=== PATIENT | male | born 1975 | race American Indian/Alaskan Native ===

== ENCOUNTER 2020-02-16 12:38 | Emergency (ER) | payer SELFPAY ==
--- NOTE | 2020-02-16 15:23 | Emergency Department Report ---
ED Headache HPI - General Chief Complaint: Headache Stated Complaint: HEAD PAIN, SWEATING Time Seen by Provider: 02/16/20 15:05 Source: patient Exam Limitations: no limitations - History of Present Illness Initial Comments: 44-year-old male presents to the ER today complaint of a headache. Patient states that for the past 2 days he has been having a headache to the frontal aspect, and crown of his head. He describes as a sharp intermittent headache. He denies any worsening factors. And he denies any relieving factors. He states that he did not try anything for the headache. He reports associated low back pain that radiates down into the posterior aspect of his legs down to his knee. This started last night. He denies any associated nausea, vomiting, abdominal pain, chest pain, vision changes, speech changes or any other associated symptoms. He denies any head injury. He denies any back or leg injury or strenuous activity. He denies hx DAVIES or similar symptoms in past. Pt BP noted to be elevated at triage. Pt admits that several yrs ago he was told that his blood pressure was elevated but at the time he was exercising and he was told to continue. He was not started on any medication. He states his BP was good when he was exercising but he has since stopped. Timing/Duration: other (2 days ago ) Quality: moderate Head Injury Location: frontal, parietal Recent Head Trauma: no recent headache/trauma Allergies/Adverse Reactions: Allergies No Known Allergies Allergy (Verified 02/16/20 12:42) Home Medications: Ambulatory Orders Ketorolac [Toradol] 10 mg PO Q6H PRN #20 tablet 02/16/20 Methocarbamol [Robaxin] 500 mg PO TID PRN #30 tablet 02/16/20 ED Review of Systems ROS: Stated complaint: HEAD PAIN, SWEATING Other details as noted in HPI Comment: All other systems reviewed and negative Constitutional: denies: chills, fever Eyes: denies: eye pain, eye discharge, vision change ENT: denies: ear pain, throat pain Respiratory: denies: cough, shortness of breath, wheezing Cardiovascular: denies: chest pain, palpitations Endocrine: no symptoms reported Gastrointestinal: denies: abdominal pain, nausea, diarrhea Genitourinary: as per HPI Musculoskeletal: back pain, arthralgia, myalgia Skin: denies: rash, lesions Neurological: headache Psychiatric: denies: anxiety, depression Hematological/Lymphatic: denies: easy bleeding, easy bruising ED Past Medical Hx - Past Medical History Previous Medical History?: No - Surgical History Past Surgical History?: No - Social History Smoking Status: Never Smoker Substance Use Type: None - Medications Home Medications: Home Medications Medication Instructions Recorded Confirmed Last Taken Type Ketorolac [Toradol] 10 mg PO Q6H PRN #20 tablet 02/16/20 Unknown Rx Methocarbamol [Robaxin] 500 mg PO TID PRN #30 tablet 02/16/20 Unknown Rx ED Physical Exam - General Limitations: No Limitations General appearance: alert, in no apparent distress - Head Head exam: Present: atraumatic, normocephalic, normal inspection - Eye Eye exam: Present: normal appearance, PERRL, EOMI Pupils: Present: normal accommodation - ENT ENT exam: Present: normal exam, normal orophraynx, mucous membranes moist, normal external ear exam - Neck Neck exam: Present: normal inspection, full ROM. Absent: meningismus - Respiratory Respiratory exam: Present: normal lung sounds bilaterally. Absent: respiratory distress, wheezes, rales, rhonchi - Cardiovascular Cardiovascular Exam: Present: regular rate, normal rhythm, normal heart sounds - GI/Abdominal GI/Abdominal exam: Present: soft. Absent: distended, tenderness, guarding - Extremities Exam Extremities exam: Present: normal inspection. Absent: full ROM, tenderness, normal capillary refill, pedal edema, calf tenderness - Back Exam Back exam: Present: normal inspection, full ROM (but with mild pain on right and left rotation and lumbar extension. ). Absent: CVA tenderness (R), CVA tenderness (L), paraspinal tenderness, vertebral tenderness, rash noted - Neurological Exam Neurological exam: Present: alert, oriented X3, CN II-XII intact, normal gait - Psychiatric Psychiatric exam: Present: normal affect, normal mood - Skin Skin exam: Present: intact ED Course Vital Signs 02/16/20 14:59 Temperature 99.7 F H Pulse Rate 94 H Respiratory 16 Rate Blood Pressure 164/100 [Left] O2 Sat by Pulse 96 Oximetry ED Medical Decision Making - Radiology Data Radiology results: report reviewed [id number] --44-year-old male presented to the ER today complaining of headache and low back pain and leg pain and no other symptoms. Patient currently resting comfortably. He reports 0 pain after IV Reglan, Benadryl and IV fluids. His blood pressure has improved after medications. Head CT showed nothing acute. Urinalysis, show wbc, epithelials, but no bacteria and therefore do not suspect UTI at this time, remainder of the urinalysis unremarkable. Patient overall is awake, alert, oriented x3. He is neurologically intact. He is well-appearing, nontoxic, and does not appear to be in any acute distress. His history, exam, and his current condition does not suggest meningitis, s troke, sepsis, subarachnoid hemorrhage, encephalitis, temporal arteritis, cauda equina, epidural abscess, dissection, aortic aneurysm or any other significant pathology at this time requiring further testing, continued ED treatment, admission or neuro consult. Discussed results with patient. Discussed suspected diagnosis and treatment plan with patient. Recommend follow-up with primary care doctor in the next few days. Patient stable at time of discharge. Critical care attestation.: If time is entered above; I have spent that time in minutes in the direct care of this critically ill patient, excluding procedure time. ED Disposition Clinical Impression: Headache, Low back pain Disposition: DC-01 TO HOME OR SELFCARE Is pt being admited?: No Does the pt Need Aspirin: No Condition: Stable Instructions: Acute Headache (ED), Acute Low Back Pain (ED) Additional Instructions: I recommend you take the medications as prescribed. Stay hydrated by drinking lots of water. I recommend follow up with PCP for continued monitoring of your blood pressure. Return to ED if worse. Prescriptions: Methocarbamol [Robaxin] 500 mg PO TID PRN #30 tablet PRN Reason: Pain , Severe (7-10) Ketorolac [Toradol] 10 mg PO Q6H PRN #20 tablet PRN Reason: Pain Referrals: PRIMARY CARE, [Primary Care Provider] - 3-5 Days Forms: Work/School Release Form(ED) Time of Disposition: 18:13
[2020-02-16] MEDS ORDERED: METOCLOPRAMIDE 10 MG/2 ML INJ IV ONE (15:24)
[2020-02-16] MEDS ORDERED: SODIUM CHLORIDE 0.9% 1000 ML 1,000 ML IV ONE (15:24)
[2020-02-16] MEDS ORDERED: diphenhydrAMINE 50 MG/ML VIAL IV ONE (15:24)
--- NOTE | 2020-02-16 16:28 | Cat Scan Report ---
CT head/brain wo con INDICATION / CLINICAL INFORMATION: 44 years Male; Headache. TECHNIQUE: Routine CT head without contrast. All CT scans at this location are performed using CT dos e reduction for ALARA by means of automated exposure control. COMPARISON: None. FINDINGS: BRAIN / INTRACRANIAL CONTENTS: No acute hemorrhage, mass effect, midline shift, hydrocephalus, or acu te, large territorial infarct. No chronic infarct or atrophy appreciated. No significant white matter abnormality. CRANIOCERVICAL JUNCTION: No significant abnormality. ORBITS: No significant abnormality of visualized orbits. SINUSES / MASTOIDS: Minimal mucosal thickening seen in the ethmoids. ADDITIONAL FINDINGS: None. IMPRESSION: 1. No focal mass, hemorrhage, hydrocephalus, or acute, large territorial infarct. Signer Name: Umer Flores MD, III Signed: 02/16/2020 4:24 PM Workstation Name: [id number]
[2020-02-16 17:39] LABS: Bilirubin,Urine NEG (Negative); Blood,Urine SM (Negative); Color,Urine Yellow (Yellow); Mucus,Urine FEW /HPF; Protein,Urine <15 mg/dL mg/dL (Negative)
[2020-02-16 18:44] VITALS: BP 132/72
== END 2020-02-16 18:43 | disposition home or self-care (01) ==
LOC: ED 12:38
DX: R51 Headache (principal); M54.5 Low back pain; R03.0 Elevated blood-pressure reading, without diagnosis of hypertension
CPT/HCPCS: 70450; 81001; 96361; 96374; 96375; 99284; J1200; J2765; J7030